=== PATIENT | female | born 1990 | race Caucasian/White ===

== ENCOUNTER 2023-10-19 23:00 | Emergency (ER) | payer MEDICAID, SELFPAY ==
[2023-10-19 23:07] VITALS: BP 151/74; PULSE 86; RESP 20; TEMP 36.9; O2SAT 99; BMI 51.6
--- NOTE | 2023-10-19 23:10 | ED.GENADULT ---
HPI - General Adult General Chief complaint: Skin/Abscess/Foreign Body Stated complaint: Wound on stomach Time Seen by Provider: 10/19/23 23:09 History of Present Illness HPI narrative: CC: 2nd Degree Burn pt. spilled boiling water on stomach a few days ago. had virtual visit and was put on keflex. ran out of oxycodone. pain is worse. denies fevers, n/v, diarrhea. 33-year-old woman presenting to the emergency department with complaint of pain in her right lower abdomen where she spilled boiling water sustaining a second-degree burn. This occurred about 6 days ago. On initial evaluation Mepilex dressing was apparently applied. Removing this then pulled off all the blister that had formed. She has had a couple ER visits in the interim. Thought to apparently been reacting to triple antibiotic ointment that she was using. Was initiated on Keflex as well. Care is complicated also as has large umbilical hernia that needs compression. Also has 8 children ranging in ages from for to 20; the eldest and another with autism I believe requiring special care. She is accompanied here by I believe [id number] who is very attentive and helpful. She has not had a fever. Still is experiencing burning pain. Also what feels like cramps below the skin even seem similar to labor cramps she notes. Has gotten a variety of recommendations about how to care or clean this wound. Is down to her last oxycodone and has been taking acetaminophen. Does not take NSAIDs otherwise due to gastric bypass. Related Data Home Medications ?Medication ?Instructions ?Recorded ?Confirmed No Known Home Medications 10/19/23 10/19/23 Previous Rx's ?Medication ?Instructions ?Recorded sennosides 8.6 mg capsule (senna) 8.6 mg PO BID PRN constipation #30 10/20/23 caps Allergies Allergy/AdvReac Type Severity Reaction Status Date / Time NSAIDS (Non-Steroidal AdvReac Severe Gastric Verified 10/19/23 23:10 Anti-Inflamma Bypass Surgery Review of Systems Status of ROS: Reports: 6 or more systems reviewed and unremarkable except as noted in History and below [facility] Medical History History of pre-eclampsia ?Z87.59 - Personal history of other complications of , childbirth and the puerperium (ICD-10) UTI (urinary tract infection) ?N39.0 - Urinary tract infection, site not specified (ICD-10) Tachycardia ?R00.0 - Tachycardia, unspecified (ICD-10) Polycystic ovaries ?E28.2 - Polycystic ovarian syndrome (ICD-10) RENEE (obstructive sleep apnea) ?G47.33 - Obstructive sleep apnea (adult) (pediatric) (ICD-10) Morbid obesity ?E66.01 - Morbid (severe) obesity due to excess calories (ICD-10) Hx of migraines ?Z86.69 - Personal history of other diseases of the nervous system and sense organs (ICD-10) Hypothyroidism ?E03.9 - Hypothyroidism, unspecified (ICD-10) Asthma ?J45.909 - Unspecified asthma, uncomplicated (ICD-10) Surgical History History of tympanostomy ?Z98.890 - Other specified postprocedural states (ICD-10) History of tonsillectomy ?Z90.89 - Acquired absence of other organs (ICD-10) History of gastric bypass ?Z98.84 - Bariatric surgery status (ICD-10) History of laparoscopic cholecystectomy ?Z90.49 - Acquired absence of other specified parts of digestive tract (ICD-10) Social History Smoking Status: Never smoker Second hand tobacco smoke exposure: No How often do you have a drink containing alcohol: never AUDIT-C Alcohol total score: 0 Non-prescribed substance use: marijuana (any form) Exam Narrative: Exam Narrative: Pleasant. Face done up with face paint as had been attending child's birthday constitution party. Clearly uncomfortable. Tremulous in apparent discomfort at various points. Abdomen is soft. There is approximately an 8 x 10 in patch on the right lower abdomen that is clearly eroded inflamed. Mildly warm. There is some surrounding pink faintly edematous but in the dependent areas in the tissue. Does not appear to have a cellulitis otherwise. Is above the wound and right and left of the wound with some other erythema and petechia that appear to be related to reaction to tape/adhesive or bandage pressure. There is some residual popped blister tissue along the medial aspect of the wound. Const: Vital Signs, click to edit/add: Vital Signs - 24 hr 10/19/23 23:07 10/20/23 00:17 10/20/23 00:17 Temperature 98.5 F 98.5 F 98.5 F Pulse Rate [Right Pulse Oximeter] 86 86 81 Respiratory Rate 20 20 20 Blood Pressure [Ri ght Upper Arm] 151/74 H 151/74 H 145/70 H Pulse Oximetry 99 99 Oxygen Delivery Me thod Room Air Room Air Documenting provider has reviewed patient's vital signs: yes Course Vital Signs Vital signs: Initial Vital Signs Temperature 98.5 F 10/19/23 23:07 Temperature Source Temporal Artery Scan 10/19/23 23:07 Pulse Rate 86 10/19/23 23:07 Respiratory Rate 20 10/19/23 23:07 Blood Pressure 151/74 H 10/19/23 23:07 Blood Pressure Mean 99 10/19/23 23:07 Blood Pressure Position Sitting 10/19/23 23:07 Pulse Oximetry 99 10/19/23 23:07 Oxygen Delivery Method Room Air 10/19/23 23:07 Vital Signs Temperature 98.5 F 10/19/23 23:07 Pulse Rate 86 10/19/23 23:07 Respiratory Rate 20 10/19/23 23:07 Blood Pressure 151/74 H 10/19/23 23:07 Pulse Oximetry 99 10/19/23 23:07 Oxygen Delivery Method Room Air 10/19/23 23:07 Temperature 98.5 F 10/20/23 00:17 Pulse Rate 81 10/20/23 00:17 Respiratory Rate 20 10/20/23 00:17 Blood Pressure 145/70 H 10/20/23 00:17 Pulse Oximetry 99 10/20/23 00:17 Oxygen Delivery Method Room Air 10/20/23 00:17 Medications Administered Medications: Discontinued Medications Generic Name Dose Route Start Last Admin Trade Name Freq PRN Reason Stop Dose Admin Bacitracin 1 applic 10/19/23 23:56 10/19/23 23:50 Bacitracin Ointment Bulk Tube TOPICAL 10/19/23 23:57 1 applic ONCE ONE Administration Medical Decision Making MDM Narrative Medical decision making narrative: ABD bandage was over the wound and slightly adherent. Wound actually appears generally clean. I do not see frankly a cellulitis. Apparently it was more indurated per their description a couple of days ago. Certainly may have had cellulitis at that time but I think not the case now though I would continue the antibiotic. I did cool the wound with some wet washcloths at 1 point. We did apply bacitracin as sole antibiotic ointment, Vaseline gauze, nonstick Telfa and then other gauze ultimately held in place by belly band obtained from OB. Did seem more comfortable. She also did take her last oxycodone. Please see patient discharge plan for further discussion. Recommending close follow-up with [facility] and then possibly our wound clinic Discharge Plan Discharge Clinical Impression: Second degree burn Patient Disposition: Home w/ Parent or Adult Condition: Stable Additional Instructions: Do consider washing with a gentle soap, perhaps baby shampoo, once daily with a dressing change. Could also just rinse with water and pat dry if too uncomfortable. Might need to soak dressings off as discussed if seemed to be sticking. Can apply aloe gel with or without lidocaine as often as needed to keep moist and comfortable. I suppose could even place Saran wrap over that temporarily. If at rest might also consider soothing with ice water soaked towels as needed. When need covered due to placement of abdominal binder or up and about and clothes will be interfering, consider then placement of the antibiotic ointment, then Vaseline gauze, then nonstick Telfa and other gauze/tape over the top of that. It sounds like you might be able to avoid tape by using the stretch tube to hold dressings in place. I would continue your cephalexin at this point. Prescribing Percocet from [facility]. Each tablet of Percocet contains 325 mg of acetaminophen in addition to 5 mg of oxycodone. Can take up to 1000 mg of acetaminophen per dose 4 times in a 24 hour period. So about every 6 hours. Stay well-hydrated. On the days that you are using the opiate, oxycodone/Percocet, consider taking senna to aid in bowel movement. First thing Saturday morning, please call to the [facility] where I hope you can be seen within a day or 2 on advice of the emergency department. I am sure they will have other recommendations for you. [facility] [address] [place], [place] [address]CHRISTOPHER [place] [id number] [id number] [facility]-acute burn [facility]) [address], [place] [address] [address] Prescriptions: New senna 8.6 mg capsule 8.6 mg PO BID PRN (Reason: constipation) Qty: 30 0RF No Action No Known Home Medications Follow Up/Referrals: Provider,Not a Local [Primary Care Provider] - Stand Alone Forms: Mobile System 7 Info Instructions
--- OUTSIDE RECORDS SUMMARY | 2023-10-19 23:42 | XMS_ITS | Clinical Summary ---
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 oz) M Vag Epidur al Livin g 9 9 MARIANNE CHITO,Luis christensen Delivery Location:[facility] (UTD 2000 MB L&D TRIAGE) Comments Blood type O positive, GBS p ositive 2011 Last Filed Vital Signs Vital Sign Reading Time Taken Comments Blood Pressure 135/89 10/14/2023 12:58 PM CDT Pulse 71 10/14/2023 12:58 PM CDT Temperature 37 ??C (98.6 ??F) 10/14/2023 12:58 PM CDT Respiratory Rate 16 10/14/2023 12:58 PM CDT Oxygen Saturation 97% 10/14/2023 12:58 PM CDT Inhaled Oxygen Concentration - - Weight 147 kg (324 lb) 10/14/2023 12:58 PM CDT Height 167.6 cm (5' 6) 10/14/2023 12:58 PM CDT Body Mass Index 52.29 10/14/2023 12:58 PM CDT Plan of Treatment Health Maintenance Due Date Last Done Comments COVID-19 vaccine series (2022-24 season) 2022 BMI (ht and wt on same day) for age 18+ 07/28/2023 07/27/2022, 04/02/2022, 03/23/2021, Additional history exists Depression screening for age 12+ 07/28/2023 07/27/2022, 03/26/2021, 03/23/2021, Additional history exists Influenza for age 9-49 11/10/2023 3, 11/04/2020, 11/04/2020, Additional history exists Pap test for age 21-65 03/23/2024 2, 03/23/2021, 12/09/2019, Additional history exists Tetanus booster 04/29/2029 04/29/2019, 09/2014, 01/26/2011, Additional history exists Pneumococcal series for age 6-64 Aged Out 03/15/2016, 11/27/2011 No longer eligibl e based on patient's age to complete this topic HIV for age 15-65 Completed 11/14/2018, , 07/03/2011, Additional history exists Hepatitis C screening for age 18-79 Completed 11/14/2018, 07/03/2011, 10/25/2010, Additional history exists Tdap Completed 04/29/2019, 09/2014, 01/26/2011 Procedures Procedure Name Priority Date/Time Associated Diagnosis Comments HPV THIN PREP Routine 03/23/2021 10:13 AM PRODUCTION STAGE MANAGER Screening for cervical cancer ANTI HIV 1/2 Routine 11/14/2018 10:46 AM CDT History of gastric bypass First trimester ANTI HCV Routine 11/14/2018 10:46 AM CDT History of gastric bypass First trimester from Last 3 Months or Most Recently Relevant to Health Maintenance Results * HPV HIGH RISK (03/23/2021 10:13 AM PRODUCTION STAGE MANAGER) TYPE 16 Negative Negative 03/27/2021 4:46 PM PRODUCTION STAGE MANAGER [facility] TYPE 18 Negative Negative 03/27/2021 4:46 PM PRODUCTION STAGE MANAGER [facility] OTHER HIGH RISK TYPES Negative Negative 03/27/2021 4:46 PM PRODUCTION STAGE MANAGER [facility] Other (Cervical) Non-Blood / Unknown 03/23/2021 10:13 AM PRODUCTION STAGE MANAGER 03/23/2021 4:46 PM PRODUCTION STAGE MANAGER Narrative [facility] - 03/27/2021 4:46 PM PRODUCTION STAGE MANAGER HPV types 16, 18, 31, 33, 35, 39, 45, 51, 52, 56, 58, 59, 66 and 68 DNA were undetectable or below the pre-set threshold. Methodology: Jaci Nhung 4800 HPV Test Zbigniew Madrid DO MICROBIOLOGY [facility] [address] [place] [address], * ANTI HCV (11/14/2018 10:46 AM CDT) Pathologist [facility] HEPATITIS C ANTIBODY Non-React deshaun Non-React deshaun 11/14/2018 5:28 PM CDT [facility] Comment:Antibodies to HCV no t detected; does not exclude the possibility of exposure to HCV. Blood BLOOD SPECIMEN / Unknown Venipuncture / Unknown 11/14/2018 10:46 AM CDT 11/14/2018 10:49 AM CDT Zbigniew Madrid DO SEND OUTS [facility] [address] [place] [address], * ANTI HIV 1/2 (11/14/2018 10:46 AM CDT) Pathologist [facility] HIV-1/HIV-2 ANTIBODY Non-Reacti ve Non-Reacti ve 11/14/2018 5:26 PM CDT [facility] Comment:HIV-1 p24 and HIV-1/ HIV-2 Ab not detected. Blood BLOOD SPECIMEN / Unknown Venipuncture / Unknown 11/14/2018 10:46 AM CDT 11/14/2018 10:49 AM CDT Zbigniew Anthony Madrid DO SEND OUTS [facility] [address] [place] [address], from Last 3 Months or Most Recently Relevant to Health Maintenance Advance Directives * Full Code (Latest Code Status on File) Date Activated Date Inactivated Comments 08/08/2022 6:45 PM 08/09/2022 1:18 PM Question Answer Comments Code Status Discussion: Reviewed Preferences * Full Code Date Activated Date Inactivated Comments 04/04/2022 6:38 AM 04/04/2022 4:03 PM Question Answer Comments Code Status Discussion: Reviewed Preferences * Full Code Date Activated Date Inactivated Comments 07/03/2019 8:23 PM 07/06/2019 4:42 PM Question Answer Comments Code Status Discussion: Per Existing Order * Full Code Date Activated Date Inactivated Comments 02/19/2018 5:49 AM 02/21/2018 12:30 PM * Full Code Date Activated Date Inactivated Comments 01/14/2018 3:20 PM 01/15/2018 1:36 PM Question Answer Comments Code Status Discussion: Discussed Care Teams Sliver Lap Machine Tender Relationship Specialty Start Date End Date None . PCP - General 10/12/23 Sharon Santiago RN [address] [place] [id number] Production Stage Manager 01/23/17 Paul Brown MD [address] [place] [id number] Surgery - General 01/23/17
[2023-10-19] MEDS: BACITRACIN OINTMENT BULK TUBE 1 APPLIC TOPICAL (23:50)
[2023-10-20 00:17] VITALS: BP 145/70; BP 151/74; PULSE 81; PULSE 86; RESP 20; TEMP 36.9; O2SAT 99
== END 2023-10-20 00:23 | disposition home or self-care (01) ==
PROVIDERS: Emergency Provider Family Medicine
DX: T21.22XA Burn of second degree of abdominal wall, initial encounter (principal); Y27.2XXA Contact with hot fluids, undetermined intent, initial encounter
CPT/HCPCS: 99283; 99284